=== PATIENT | female | born 1995 | race Caucasian/White ===

== ENCOUNTER 2024-02-06 10:47 | Emergency (ER) | payer OTHER, SELFPAY ==
[2024-02-06 11:00] VITALS: BP 131/96
[2024-02-06 11:25] LABS: Urine Albumin 1+ (Neg - Trace); Urine Bilirubin Negative (Negative); Urine Character Clear (Clear); Urine Color Yellow; Urine Glucose Negative (Negative); Urine Ketone 3+ (Negative); Urine Leukocyte Negative (Negative); Urine Nitrite Negative (Negative); Urine Occult Blood 4+ (Negative); Urine Specific Gravity 1.025 (<1.030); Urine Urobilinogen Negative (Neg - 1+)
[2024-02-06 11:36] LABS: Urine Bacteria Few (Negative); Urine Red Blood Cell 0-2 /HPF (0-2)
--- NOTE | 2024-02-06 11:47 | ED.GENMED ---
History of Present Illness
General
Chief Complaint: Abdominal Pain
Source: patient
Exam Limitations: none
Time Seen by Provider: 02/06/24 11:09
Nursing documentation reviewed up to this point in time: agreed with
History of Present Illness
History of Present Illness:
28-year-old female with past medical history of polysubstance use presents to the emergency room from [facility] for evaluation of nausea and vomiting. Patient has been incarcerated for 2 months and has not been using any
drugs or alcohol since. She says that there is a viral illness going around the residential and that multiple other people have been sick with similar symptoms over the past week or 2. She says that yesterday she started with nausea and has had
repeated episodes of vomiting and dry heaving since. She says that she has some soreness in her abdomen and chest from retching but denies any significant amount of chest or abdominal pain. She has not had any diarrhea. She has had some mild
dizziness and dry mouth concern for dehydration. She says she has not been able to keep down food or drink. She was brought to the ER for evaluation. She denies any fever or chills. She denies any vaginal bleeding or discharge. Denies any
urinary symptoms. Denies any other complaints.
Past History
Past History
ED Past Medical History: Psychiatric (Heroin abuse/IVDA)
ED Past Surgical History: None
Social History
Tobacco: Non-smoker
Alcohol: None
Drug: None
Review of Systems
Review of Systems
All Other Systems: ROS reviewed and negative except as documented in HPI and ROS
Constitutional: Denies fever
Respiratory: Denies cough or trouble breathing
Cardiac: Reports chest pain (Sore rib)
ABD/GI: Reports abdominal pain (Soreness), nausea and vomiting; Denies diarrhea
: Denies dysuria, frequency, flank pain or bleeding
Musculoskeletal: Denies neck pain or back pain
Neurological: Reports dizzy; Denies headache
Phy Exam
Physical Exam
Physical Exam:
General: Awake, alert, oriented x3; no acute distress
Head: Normocephalic, atraumatic
Eyes: Conjunctiva normal, sclera anicteric
Throat: Airway intact, dry mucous membranes
Neck: Trachea midline, supple without meningismus
Lungs: Clear to auscultation bilaterally, no wheezing, rales, rhonchi
Heart: Tachycardia with regular rhythm, no murmurs, gallops, or rubs
Abd: Soft, non distended, nontender
Neuro: No gross deficits
Skin: Warm and dry, no rash
Extremities: No edema in extremities, warm and well-perfused
Scores
Heart Failure Risk
Heart Failure Risk Score: Not Applicable
Heart Score for Chest Pain Patients
STEMI patient?: Not applicable
Withdrawal Assessment of Alcohol
Withdrawal Assessment Completed?: Not applicable
Course
Orders/Labs/Results
Orders:
Orders
02/06/24 11:10
Test Result ONCE
02/06/24 11:16
Urinalysis Reflex To Culture Urgent
Date Specimen was Collected: 02/06/24
Time Specimen was Collected: 11:11
Urine Microscopic Reflex Cult Urgent
02/06/24 11:35
0.9% Sodium Chloride 1000 ml [Nss] 1,000 ml IV BOLUS
Ondansetron Injectable [Zofran] 4 mg IV NOW STA
02/06/24 11:52
Electrocardiogram (*1) Urgent
Reason for Study: QTc Monitoring
EKG- Treatment ONCE
02/06/24 12:10
Complete Blood Count/With Diff Urgent
02/06/24 12:15
Mag Hydrox/Al Hydrox/Simeth [Maalox] 30 ml Phenobarb/Hyoscy/Atropine/Scop [] 10 ml Viscous Lidocaine 2% [Xylocaine Viscous Cup] 10 ml PO NOW
02/06/24 12:37
Mag Hydrox/Al Hydrox/Simeth [Maalox] 30 ml .ROUTE .STK-MED ONE
Phenobarb/Hyoscy/Atropine/Scop [] 10 ml .ROUTE .STK-MED ONE
Viscous Lidocaine 2% [Xylocaine Viscous Cup] 15 ml .ROUTE .STK-MED ONE
02/06/24 13:08
Comprehensive Metabolic Panel Urgent
HCG, Serum Qualitative Screen Urgent
Lipase Urgent
02/06/24 14:[address] Non Medication Order As Directed
Physician Order: PO CHALLENGE PLEASE
Above order entered?: Yes
02/06/24 14:21
0.9% Sodium Chloride 1000 ml [Nss] 1,000 ml IV BOLUS
Abnormal Lab Results
02/06/24 02/06/24 02/06/24
11:16 12:10 13:08
WBC 12.5 H 10^3/uL
(4.8-10.8)
MPV 10.6 H fL
(7.4-10.4)
Absolute Neuts (auto) 10.8 H 10^3/uL
(1.4-6.5)
Absolute Lymphs (auto) 1.1 L 10^3/uL
(1.2-3.4)
Neutrophils % 86.2 H %
(42.2-75.2)
Lymphocytes % 8.9 L %
(20.5-51.1)
BUN 18 H mg/dl
(7-17)
Creatinine 0.5 L mg/dL
(0.6-1.0)
Glucose 118 H mg/dl
(70-99)
ALT 44 H U/L
(0-35)
Albumin 5.1 H g/dl
(3.5-5.0)
Urine Ketones 3+ A
(Negative)
Ur Occult Blood Reflex 4+ A
(Negative)
Urine Bacteria (Reflex) Few A
(Negative)
Urine Albumin (Reflex) 1+ A
(Neg - Trace)
02/06/24 12:10
02/06/24 13:08
Vital Signs
Initial and Last Documented VS:
Initial Vital Signs
Temp Pulse Resp BP Pulse Ox
37.3 C 110 20 131/96 98
02/06/24 11:00 02/06/24 11:00 02/06/24 11:00 02/06/24 11:00 02/06/24 11:00
Last Documented Vital Signs
Temp Pulse Resp BP Pulse Ox
37.3 C 91 13 98/70 100
02/06/24 11:00 02/06/24 15:15 02/06/24 15:15 02/06/24 15:00 02/06/24 15:15
MDM/Problems Addressed
Differential Diagnosis Includes:
Gastroenteritis/gastritis, pancreatitis, cholecystitis/cholelithiasis, hepatitis; unlikely bowel obstruction with no surgical history; unlikely drug/alcohol withdrawal with patient clean x 2 months while incarcerated
MDM/Problems Addressed:
28-year-old female [facility] evaluation of nausea and vomiting over the past 24 hours now associate with some dizziness and concern for dehydration. Multiple other prisoners have been sick with viral
illness recently she says. She is tachycardic but otherwise normal vitals. Physical exam as above�notably benign abdominal exam and supple neck with no meningeal signs. Clinical picture does seem consistent with viral gastrointestinal illness.
Will place an IV send labs including a CBC and a CMP, lipase, check hCG and urinalysis. Will provide IV antiemetic and IV fluids. She denies any significant abdominal pain and only has some soreness from vomiting she says; she has benign abdominal
exam, hold off on abdominal manage at this point very low suspicion for emergent intra-abdominal pathology at this point based on full clinical picture.
Labs reviewed: CBC shows slight leukocytosis could be some stress response with profuse vomiting�no fever and no abdominal tenderness. CMP no clinically significant abnormalities�LFTs essentially normal and lipase normal. Urinalysis positive for
ketones, few bacteria but no pyuria and many squamous cells that suggest contamination. After Zofran and IV fluids heart rate has improved now in the 90s. Patient tolerating p.o. without difficulty. Suspect likely viral gastroenteritis. Stable
for discharge we will provide Zofran for nausea and encouraged p.o. fluids. Advised to return for worsening symptoms�patient is agreeable to this. All questions answered.
*Pulse Oximetry
Patient hypoxic: no
*EKG
Interpreted by ED Provider?: Yes
Heart Rate: 97
Rate: normal
Rhythm: sinus
Gonzales: normal axis
Interval: normal interval and normal QT interval
QRS Pattern: normal QRS
Ischemia: no ischemia
*Critical Care Note
Total Time (30-74mins, 75-104mins- exclusive of procedures): Not Applicable
Data Reviewed
Source: patient and police
Further Testing Considered But Not Given:
Considered CT abdomen
Patient Management
Social determinants of health affecting care: Living situation (Patient is incarcerated)
ED Attending Note
-
Portions of this chart may have been created with voice recognition software.� Occasional wrong word or��sound alike� substitutions may have occurred due to the inherent limitations of voice recognition software.
Discharge Plan
Departure
Patient Disposition: Home (Routine Discharge)
Date of Disposition: 02/06/24
Time of Disposition: 15:44
Patient with high blood pressure during this ER visit?: No
Discharge Problem:
Acute dehydration, Nausea & vomiting
Instructions: Nausea and vomiting in adults
Prescriptions:
New
ondansetron 4 mg tablet,disintegrating
4 mg PO TIDPRN PRN (Reason: nausea/vomiting) Qty: 20 0RF
No Action
clonidine HCl 0.1 MG tablet
0.1 mg PO Q6HPRN PRN (Reason: opiate withdrawal) 0RF
polyethylene glycol 3350 17 GRAMS powder in packet
17 grams PO DAILY 0RF
cephalexin 500 MG capsule
500 mg PO QID Qty: 24 0RF
Rx Instructions:
for 6 more days
nicotine 21 MG patch 24 hour
21 mg transdermal DAILY 0RF
buprenorphine HCl 8 MG tablet, sublingual
20 mg sublingual DAILY 0RF
apixaban [Eliquis] 5 MG tablet
5 mg PO BID Qty: 70 0RF
Rx Instructions:
2 TABS (10mg) twice daily for 10 doses, then 1 tab (5mg) twice daily for 3 months.
Referrals:
[facility]. [facility],Facility [Family Provider] - Follow up in 2-3 days
Activity Restrictions/Additional Instructions:
You were seen in the emergency room for nausea and vomiting. We think that your symptoms are related to a viral infection. You are given medicine (Zofran) which help with your nausea. You are also given fluids because you were dehydrated. You
should make sure that you are drinking plenty of fluids over the next few days. You should take Zofran as prescribed to help prevent additional vomiting. If you are having vomiting despite treatment with Zofran and difficulty keeping fluids down,
or if you have worsening abdominal pain or any other concerning symptoms please return to the emergency room to be reassessed.
Thank you for visiting the Emergency Department at [facility].
1. Please schedule a follow up appointment as directed. Call first thing tomorrow morning to make an appointment.
2. If indicated, please take your medications as instructed and indicated on discharge paperwork.
3. If any of your symptoms do not improve, or persist, or become more severe within 6-12 hours, please return to the emergency department for further care.
4. Please return to the emergency department if you develop a headache, neck pain/stiffness, fever greater than 100.4F, chest pain, shortness of breath, persistent nausea, vomiting, slurred speech, difficulty walking, numbness/tingling, weakness,
signs of infection or any other symptoms that are worrisome to you.
Please call [phone] if you have any questions.
Interventions
Interventions:
*Risk Screen - Suicide Last Done: 02/06/24 11:00
*General Assessment Last Done: 02/06/24 11:00
*Neglect/Abuse Screening Last Done: 02/06/24 11:00
ED- Fall Risk Assessment Last Done: 02/06/24 14:59
*ED COVID-19 Vaccine History Last Done: 02/06/24 14:59
RP-Skoxap-Uginujpvsq Assessment Last Done: 02/06/24 11:46
Discharge Date and Time
Print Language: WALLISIAN
[2024-02-06] MEDS: NSS 1000 IV ×2 (12:16→14:33)
[2024-02-06] MEDS: ZOFRAN 4 MG IV (12:16)
[2024-02-06 12:21] LABS: % Basophils 0.2 % (0-2); % Immature Granulocytes 0.2 % (0-0.5); % Lymphocytes 8.9 % (20.5-51.1); % Monocytes 4.5 % (1.7-9.3); % Neutrophils 86.2 % (42.2-75.2); Absolute Lymphocytes 1.1 10^3/uL (1.2-3.4); Absolute Monocytes 0.6 10^3/uL (0.1-0.6); Absolute Neutrophils 10.8 10^3/uL (1.4-6.5); Hematocrit 41.8 % (37.0-47.0); Hemoglobin 15.4 g/dL (12.0-16.0); Mean Corp Hgb Conc. 36.8 g/dL (33.0-37.0); Mean Corpuscular Hgb 29.9 pg (27.0-31.0); Mean Corpuscular Volume 81.2 fL (81.0-99.0); Mean Platelet Volume 10.6 fL (7.4-10.4); Nucleated Red Blood Cells % 0 %; Platelet Count 274 10^3/uL (130-400); Red Blood Cell Count 5.15 10^6/uL (4.20-5.40); Red Cell Dist. Width 11.8 % (11.5-14.5); White Blood Cell Count 12.5 10^3/uL (4.8-10.8)
[2024-02-06] MEDS: MAALOX 50 PO (12:42)
[2024-02-06 13:03] VITALS: BP 111/76
[2024-02-06 13:33] LABS: HCG, Serum Qualitative Screen Negative
[2024-02-06 13:34] LABS: ALT (SGPT) 44 U/L (0-35); AST (SGOT) 34 U/L (14-36); Albumin 5.1 g/dl (3.5-5.0); Alkaline Phosphatase 56 U/L (38-126); Blood Urea Nitrogen 18 mg/dl (7-17); Calcium 9.8 mg/dl (8.4-10.2); Carbon Dioxide 25 mmol/L (22-30); Chloride 99 mmol/L (98-107); Glucose 118 mg/dl (70-99); Potassium 3.5 mmol/L (3.5-5.1); Sodium 139 mmol/L (135-145); Total Bilirubin 0.7 mg/dl (0.2-1.3); Total Protein 7.8 g/dl (6.3-8.2); eGFR > 60.00
[2024-02-06 14:00] VITALS: BP 105/73
[2024-02-06 14:12] LABS: Lipase 30 U/L (23-300)
[2024-02-06 15:00] VITALS: BP 98/70
== END 2024-02-06 15:57 | disposition home or self-care (01) ==
LOC: EMR 10:47
PROVIDERS: EMERGENCY PHYSICIAN Emergency Medicine
DX: R10.9 Unspecified abdominal pain (principal); R11.2 Nausea with vomiting, unspecified; R42 Dizziness and giddiness; R07.89 Other chest pain; E86.0 Dehydration; R00.0 Tachycardia, unspecified; F19.91 Other psychoactive substance use, unspecified, in remission
CPT/HCPCS: 99284; 96374; 96361 ×2; 80053; 81003; 81015; 83690; 84703; 85025; 93005